=== PATIENT | male | born 1950 | race Caucasian/White ===

== ENCOUNTER 2021-01-08 14:41 | Inpatient (IN) | payer MEDICARE ==
[~2021-01-08] VITALS: Ht 180.3 cm; Wt 91.6 kg
--- NOTE | 2021-01-08 15:09 | NUR ---
BIBFAMILY FROM HOME TO ER BED 6. AAOX4. NOT IN RESOP DISTRESS. AMBULATORY. BROUGHT IN FOR ABDOMINAL DISTENTION FOR THE PAST 4 DAY WELL BILAT LOWER LEG SWELLING. PT IS ALSO REPORTED BY THE FAMILY HAVING EPISODES OF CONFUSION AND POOR APETITE. PT DENIES PAIN AT THIS TIME BUT VERBALIZES THE HIS LEG IS UNCOMFORTABLE BECAUSE OF THE SWELLING. AWAITING MD FOR EVAL.
[2021-01-08 15:48] LABS: EOSINOPHILS % (AUTO) 2.5 % (0.0-6.0); HEMATOCRIT 39 % (39-51); LYMPHOCYTES # (AUTO) 1.2 /CMM (0.8-4.8); LYMPHOCYTES % (AUTO) 29.8 % (20.0-44.0); MEAN CORPUSCULAR HGB CONC 34 g/dl (31.0-36.0); MEAN CORPUSCULAR VOLUME 102 fL (80-96); MONOCYTES # (AUTO) 0.7 /CMM (0.1-1.30); MONOCYTES % (AUTO) 16.7 % (2.0-12.0); PLATELET COUNT (AUTO) 110 /CMM (150-450); WHITE BLOOD COUNT (AUTO) 3.9 K/uL (4.3-11.0)
[2021-01-08 15:57] LABS: CALCIUM, SERUM 8.2 mg/dL (8.5-10.1); CREATININE 0.8 mg/dL (0.6-1.3)
[2021-01-08 15:58] LABS: SERUM AMMONIA 26 umol/L (11-32)
[2021-01-08 16:03] LABS: ALBUMIN 2.5 g/dL (3.4-5.0); BILIRUBIN,DIRECT 1.1 mg/dL (0.0-0.2); TOTAL PROTEIN, SERUM 6.2 g/dL (6.4-8.2)
--- NOTE | 2021-01-08 16:09 | NUR ---
consent obtained from pt for Ultrasound Guided Paracentesis
--- NOTE | 2021-01-08 16:10 | NUR ---
PT NO TON BLOOD THINNER
[2021-01-08 16:13] LABS: ALCOHOL, BLOOD < 3 mg/dL (0-0); B-TYPE NATRIURETIC PEPTIDE 146 PG/ML (0-125)
--- NOTE | 2021-01-08 16:25 | NUR ---
US TECH AND RADILOGIST AT BEDSIDE WELL
--- NOTE | 2021-01-08 16:25 | NUR ---
DR. HOLCOMB AT BEDSIDE FOR THE US GUIDED PARACENTESIS
[2021-01-08] MEDS ORDERED: CEFTRIAXONE 1 G in IV D5W 50 ML IV ONE (17:30)
[2021-01-08] MEDS ORDERED: CEFTRIAXONE 1GM BAG (ER ONLY) 50 ML IV ONE (18:17)
[2021-01-08 18:59] LABS: BILIRUBIN,URINE SMALL (NEGATIVE); COLOR,URINE ORANGE (YELLOW); LEUKOCYTE ESTERASE ,URINE Negative (NEGATIVE); NITRITE, URINE Negative (NEGATIVE); PROTEIN,URINE Trace mg/dl (NEGATIVE); UGLUCOSE Negative (NEGATIVE)
[2021-01-08 19:03] LABS: BACTERIA,URINE Rare /HPF (None Seen); RBC,URINE NONE SEEN /HPF (0-2); SQUAMOUS EPITHELIAL CELL,UR Few /HPF (None Seen); WBC,URINE NONE SEEN /HPF (0-3)
[2021-01-08] MEDS ORDERED: ONDANSETRON HCL/PF 4 MG/2 ML VIAL IVP PRN (20:30)
[2021-01-08] MEDS ORDERED: ACETAMINOPHEN 325 MG TABLET PO PRN (20:30)
[2021-01-08] MEDS ORDERED: MAGNESIUM HYDROXIDE 30 ML UDC PO PRN (20:30)
[2021-01-08] MEDS ORDERED: ZOLPIDEM TARTRATE 5 MG TABLET PO PRN (20:30)
[2021-01-08] MEDS ORDERED: MAG HYDROX/AL HYDROX/SIMETH 30 ML UDC PO PRN (20:30)
[2021-01-08] MEDS ORDERED: Z GUARD REMEDY 2 OZ OINT TP PRN (20:30)
[2021-01-08] MEDS ORDERED: HYDROCODONE/APAP 5/325MG TABLET PO PRN (20:30)
--- NOTE | 2021-01-08 21:10 | NUR ---
REPORT GIVEN TO SABINA CAO FOR [facility]ENCH.
[2021-01-08 21:25] VITALS: BP 138/62
--- NOTE | 2021-01-08 21:25 | NUR ---
MS MIXING PAN TENDER NOTE RECEIVED PATIENT VIA GURNEY. AMBULATED TO BED WITH STEADY GAIT. A/OX4. TOLERATING ROOM AIR. RESPIRATIONS ARE EVEN AND UNLABORED. NO S/S SOB NOTED. NO C/O PAIN AT THIS TIME. IN NO APPARENT DISTRESS. IV ACCESS IN RAC#20 PATENT AND SALINE LOCKED. INITAL PHYSICAL ASSESSMENT COMPLETED AT THIS TIME. SKIN ASSESSMENT CONDUCTED, SKIN INTACT. HEALTH INFORMATION TECHNOLOGIST OBTAINED VITAL SIGNS AND COMPLETED BELONGING LIST. BED IS LOW AND LOCKED. HOB FLAT, SIDE RAILS UP X2. CALL LIGHT WITHIN REACH. INFORMED PATIENT ON USE OF CALL LIGHT. WILL CONTINUE TO MONITOR THROUGHOUT SHIFT.
--- NOTE | 2021-01-08 21:26 | NUR ---
PT WAS TRANSPORTED TO UNIT ON [facility] WITH EMT AND RN AT BEDSIDE W/ ACLS PROTOCOL. NAD NOTED DURING TRANSPORT. PT AMBULATED FROM RMELVIN TO BED ON STEADY GAIT W/O ASSIST
--- NOTE | 2021-01-08 22:59 | NUR ---
MS RN NOTE INFORMED ON ALL CLAIM APPROVER BRIAN JOSEPH THAT PATIENT DOES NOT HAVE A DIET ORDERED AND I REQUESTING WATER. TELEPHONE ORDER 2GM SODIUM DIET WITH CONTROLLED CARBS. ORDER READ BACK NOTED AND CARRIED OUT.
--- NOTE | 2021-01-09 07:04 | NUR ---
MS RN CLOSING NOTE PATIENT RESTING IN BED. A/OX4. TOLERATING ROOM AIR. NO RESP DISTRESS. NO C/O PAIN. NO DISTRESS. IV ACCESS MAINTAINED IN RAC#20 . BED REMAINS LOW AND LOCKED. HOB FLAT, SIDE RAILS UP X2. CALL LIGHT WITHIN REACH. WILL ENDORSE TO NEXT SHIFT
[2021-01-09 07:08] LABS: BASOPHILS % (AUTO) 0.5 % (0.0-2.0); EOSINOPHILS % (AUTO) 2.3 % (0.0-6.0); HEMATOCRIT 35 % (39-51); HEMOGLOBIN 12.1 g/dL (13.5-17.5); LYMPHOCYTES # (AUTO) 1.1 /CMM (0.8-4.8); LYMPHOCYTES % (AUTO) 29.8 % (20.0-44.0); MEAN CORPUSCULAR HGB CONC 34 g/dl (31.0-36.0); MEAN CORPUSCULAR VOLUME 102 fL (80-96); MONOCYTES # (AUTO) 0.6 /CMM (0.1-1.30); MONOCYTES % (AUTO) 15.7 % (2.0-12.0); NEUTROPHILS # (AUTO) 1.9 /CMM (1.8-8.9); NEUTROPHILS % (AUTO) 51.7 % (43.0-81.0); PLATELET COUNT (AUTO) 101 /CMM (150-450); RED BLOOD CELL COUNT(AUTO) 3.47 MIL/uL (4.5-6.0); WHITE BLOOD COUNT (AUTO) 3.7 K/uL (4.3-11.0)
--- NOTE | 2021-01-09 07:30 | NUR ---
MS RN RECEIVED ON BED, AWAKE,ALERT,ORIENTED X4,NOT IN ANY FORM OF DISTRESS, RESPIRATIONS,EVEN AND UNLABORED,NO SOB NOTED, ABDOMEN DISTENDED, SOFT,POSITIVE BOWEL SOUNDS,DENIES PAIN AT THIS TIME, WILL MONITOR PATIENT.
[2021-01-09 07:49] LABS: BILIRUBIN,TOTAL 1.4 mg/dL (0.2-1.0); CREATININE 0.6 mg/dL (0.6-1.3); MAGNESIUM 1.9 mg/dL (1.8-2.4); PHOSPHORUS 3.1 mg/dL (2.5-4.9); POTASSIUM 3.8 mmol/L (3.5-5.1); TOTAL PROTEIN, SERUM 5.3 g/dL (6.4-8.2)
[2021-01-09 07:58] LABS: THYROID STIMULATING HORMONE 1.638 uIU/mL (0.358-3.74)
[2021-01-09 08:00] VITALS: BP 122/58
--- NOTE | 2021-01-09 08:30 | NUR ---
MS RN WAS SEEN BY DR. CRISTHIAN Coronado/ ORDERS MADE AND CARRIED OUT.
--- NOTE | 2021-01-09 09:00 | NUR ---
MS RN BREAKFAST SERVED,TOLERATED WELL.
[2021-01-09 16:00] VITALS: BP 128/67
--- NOTE | 2021-01-09 16:19 | NUR ---
SS Consult: SS Consult requested for ETOH use. SW met with pt. bedside. Pt. is alert & oriented x 4. Pt. appears unkempt & makes appropriate eye contact. Pt.s speech is WNL. Pt. states he lives alone at [[address] [facility] [address]]. pt. stated that his drink of choice is wine and he consumes 1 liter/ day. SW completed ETOH intervention with pt. Pt. stated he doesnt believe that drinking is a problem for him. pt. stated he is independent with ADLs and is ambulatory. Pt. denies SI/HI & denies hallucinations. SW provided pt. with addiction resources and pt. accepted them. SW provide pt. with the following resources: Substance Abuse resources provided included: [facility] Substance Abuse Self-Helpline ([facility]) ; [facility] [address] [facility] [place] [id number] ; [facility] [address] [facility] [id number] ; [facility] [address] [facility] [phone] ; [facility] [address] [facility] [id number] ; [facility] [address] [facility] [id number] ; [facility] [address] [facility] [phone] ; [facility] Substance Abuse Helpline([facility])-[facility] ; [facility] ; [facility] [place]; [facility] [place]; [facility] [place]; [facility]; [facility]; [facility] [place]; [facility], [facility]. Sayda Dunn; Alcoholics Anonymous [facility]; [place] ; Marijuana Anonymous [facility]; Narcotics Anonymous www.na.org;
[2021-01-09] MEDS ORDERED: CEFTRIAXONE 1 G in IV D5W 50 ML IV SCH (18:00)
--- NOTE | 2021-01-09 19:00 | NUR ---
ms rn on bed, no distress noted, iv atb running.
--- NOTE | 2021-01-09 19:30 | NUR ---
MS RN OPENING NOTE RECEIVED PATIENT IN BED. A/OX4. TOLERATING ROOM AIR. RESPIRATIONS ARE EVEN AND UNLABORED. NO S/S SOB NOTED. NO C/O PAIN AT THIS TIME. IN NO APPARENT DISTRESS. IV ACCESS IN RAC#20 PATENT AND SALINE LOCKED. BED IS LOW AND LOCKED, HOB FLAT, SIDE RAILS UP X2. CALL LIGHT WITHIN REACH. WILL CONTINUE TO MONITOR THROUGHOUT SHIFT
[2021-01-09 20:00] VITALS: BP 121/66
[2021-01-10 06:36] LABS: BASOPHILS % (AUTO) 0.9 % (0.0-2.0); EOSINOPHILS % (AUTO) 2.3 % (0.0-6.0); HEMATOCRIT 38 % (39-51); HEMOGLOBIN 12.9 g/dL (13.5-17.5); LYMPHOCYTES # (AUTO) 1.3 /CMM (0.8-4.8); LYMPHOCYTES % (AUTO) 32.6 % (20.0-44.0); MEAN CORPUSCULAR HGB CONC 34 g/dl (31.0-36.0); MEAN CORPUSCULAR VOLUME 102 fL (80-96); MONOCYTES # (AUTO) 0.5 /CMM (0.1-1.30); MONOCYTES % (AUTO) 12.5 % (2.0-12.0); NEUTROPHILS # (AUTO) 2.1 /CMM (1.8-8.9); NEUTROPHILS % (AUTO) 51.7 % (43.0-81.0); PLATELET COUNT (AUTO) 113 /CMM (150-450); RED BLOOD CELL COUNT(AUTO) 3.74 MIL/uL (4.5-6.0)
--- NOTE | 2021-01-10 06:52 | NUR ---
MS RN CLOSING NOTE PATIENT IN BED. A/OX4. REMAINS TOLERATING ROOM AIR.NO RESP DISTRESS. NO C/O PAIN. NO DISTRESS. IV ACCESS MAINTAINED IN RAC#20. BED IS LOW AND LOCKED, HOB FLAT, SIDE RAILS UP X2. CALL LIGHT WITHIN REACH. WILL ENDORSE TO NEXT SHIFT
[2021-01-10 06:58] LABS: CALCIUM, SERUM 8.2 mg/dL (8.5-10.1); CREATININE 0.7 mg/dL (0.6-1.3); POTASSIUM 3.8 mmol/L (3.5-5.1)
[2021-01-10 07:58] VITALS: BP 129/65
--- NOTE | 2021-01-10 08:15 | NUR ---
MS RN OPENING NOTE PT RECEIVED IN BED, AWAKE, RESPONSIVE AND A/O X4. NO C/O PAIN AT THIS TIME. PT IS ON ROOM AIR WITH NO S/SX SOB, LABORED BREATHING OR RESPIRATORY DISTRESS AT THIS TIME. PT HAS IV ACCESS ON RIGHT AC G#20 SL, PATENT, INTACT AND FLUSHING WELL WITH NO S/SX OF INFILTRATION, IRRITATION OR REDNESS. SEEN BY DOCTOR IN THE AM WITH NEW ORDERS FOR SPIRONOLACTONE. SAFETY MEASURES IN PLACE: BED IN LOWEST, LOCKED POSITION WITH BOTH UPPER SIDE RAILS UP X2. CALL LIGHT PLACED WITHIN REACH. WILL CONTINUE TO MONITOR.
[2021-01-10] MEDS: SPIRONOLACTONE 25 MG TABLET PO SCH ×2 (08:24→16:09)
[2021-01-10 16:00] VITALS: BP 107/64
--- NOTE | 2021-01-10 18:31 | NUR ---
MS RN CLOSING NOTE PT REMAINS IN BED, AWAKE, RESPONSIVE AND A/O X4. PT IS ON ROOM AIR AND DOES NOT EXHIBIT S/SX SOB, LABORED BREATHING OR RESPIRATORY DISTRESS. PT'S IV ACCESS ON RIGHT AC G#20 SL REMAINS PATENT, INTACT AND FLUSHING WELL WITH NO S/SX OF INFILTRATION/IRRITATION. SAFETY MEASURES MAINTAINED: BED IN LOWEST POSITION AND LOCKED WITH BOTH UPPER SIDE RAILS UP X2. CALL LIGHT PLACED WITHIN REACH. WILL ENDORSE TO UTILITY SERVICE WORKER NURSE.
[2021-01-10 20:00] VITALS: BP 137/74
--- NOTE | 2021-01-10 20:20 | NUR ---
RN OPENING NOTE PATIENT RECEIVED AMBULATING IN HIS ROOM, DENIES ANY PAIN OR SHORTNESS OF BREATH. ALERT AND ORIENTED X4, SLIGHTLY HARD OF HEARING. SAFETY PRECAUTIONS IN PLACE, CALL LIGHT WITHIN REACH, PATIENT REMINDED TO CALL FOR ANY ASSISTANCE. WILL CONTINUE MONITORING CLOSELY.
[2021-01-11 06:21] LABS: BASOPHILS % (AUTO) 0.7 % (0.0-2.0); EOSINOPHILS % (AUTO) 1.7 % (0.0-6.0); HEMATOCRIT 39 % (39-51); HEMOGLOBIN 13.3 g/dL (13.5-17.5); LYMPHOCYTES # (AUTO) 1.6 /CMM (0.8-4.8); LYMPHOCYTES % (AUTO) 27.9 % (20.0-44.0); MEAN CORPUSCULAR HGB CONC 34 g/dl (31.0-36.0); MEAN CORPUSCULAR VOLUME 101 fL (80-96); MONOCYTES # (AUTO) 0.6 /CMM (0.1-1.30); MONOCYTES % (AUTO) 10.6 % (2.0-12.0); NEUTROPHILS # (AUTO) 3.4 /CMM (1.8-8.9); NEUTROPHILS % (AUTO) 59.1 % (43.0-81.0); PLATELET COUNT (AUTO) 125 /CMM (150-450); WHITE BLOOD COUNT (AUTO) 5.7 K/uL (4.3-11.0)
[2021-01-11 06:36] LABS: CALCIUM, SERUM 8.4 mg/dL (8.5-10.1); CREATININE 0.6 mg/dL (0.6-1.3); POTASSIUM 4.1 mmol/L (3.5-5.1)
[2021-01-11] MEDS ORDERED: SPIR25TA6 PO (07:27)
--- NOTE | 2021-01-11 07:30 | NUR ---
MS RN OPENING NOTE Patient received in bed, awake, and A & O x4. Patient is on room air, respirations unlabored and even, no respiratory distress noted. Patient no c/o pain or discomfort at this time. RAC 22 gauge intact, no redness or swelling. Abdomen round and distended. Seen by Doctor in AM with plans for discharge. Bed in lowest position, bed locked, upper side rails up. Call light within reach.
[2021-01-11 08:00] VITALS: BP 120/77
[2021-01-11] MEDS: SPIRONOLACTONE 25 MG TABLET PO SCH (08:07)
--- NOTE | 2021-01-11 13:50 | NUR ---
RN NOTES SPOKE W/ SENIOR RESEARCH CONSULTANT AND INFORMED ABOUT PRIMARY CARE REFERRAL; INSTRUCTED TO CALL [facility] ([phone]). WILL INFORM JOSSE RODAS.
--- NOTE | 2021-01-11 14:05 | NUR ---
RN VITALY RODAS MADE AWARE OF [facility] FOR [facility]IMARY CARE; WILL STAMP REDEMPTION CLERK PATIENT BETWEEN [phone] TODAY.
--- NOTE | 2021-01-11 16:18 | NUR ---
CARBON BRUSH MAKER NOTES PATIENT WAS SEEN BY DR. MORROW TODAY W/ ORDER FOR DISCHARGE TO HOME. DISCHARGE INSTRUCTIONS AND EDUCATION GIVEN TO PATIENT AND JOSSE RODAS, VIA PHONE. DISCHARGE FORM AND BELONGINGS LIST FORM SIGNED BY PATIENT. NO SKIN ISSUES NOTED. IV LINE AND NAME ARMBAND REMOVED. PATIENT WAS ACCOMPANIED BY [facility], TO THE LOBBY VIA WHEELCHAIR. PATIENT WAS PICKED UP BY [facility] VIA PRIVATE CAR. CHARGE NURSE AND MD AWARE OF DISCHARGE.
== END 2021-01-11 16:15 | disposition home or self-care (01) | DRG 433 ==
LOC: ER 14:41 → MED 20:39
PROVIDERS: ADMIT Registered Nurse; ATTEND Family Medicine
PROC: 0W9G3ZZ Drainage of Peritoneal Cavity, Percutaneous Approach (ICD-10-PCS; principal; 2021-01-08)
DX: K74.60 Unspecified cirrhosis of liver (principal); D61.818 Other pancytopenia; R18.8 Other ascites; E44.0 Moderate protein-calorie malnutrition; K76.6 Portal hypertension; B96.89 Other specified bacterial agents as the cause of diseases classified elsewhere; E87.70 Fluid overload, unspecified; B19.20 Unspecified viral hepatitis C without hepatic coma; I10 Essential (primary) hypertension; Z68.28 Body mass index [BMI] 28.0-28.9, adult; E11.9 Type 2 diabetes mellitus without complications; F17.200 Nicotine dependence, unspecified, uncomplicated; F10.10 Alcohol abuse, uncomplicated; Y90.0 Blood alcohol level of less than 20 mg/100 ml
CPT/HCPCS: 36415; 71045-TC; 76942-TC; 80048-TC; 80053-TC; 80061-TC; 80076-TC; 81001; 82140-TC; 82962-TC; 83615-TC; 83690-TC; 83735-TC; 83880; 84100-TC; 84443-TC; 85025-TC; 85730-TC; 87070-TC; 87081-TC; 89051-TC; 93970-TC; C9803; G0378; G0480; J0696; J3490; J7060